=== PATIENT | male | born 2000 | race Caucasian/White ===

== ENCOUNTER 2024-07-05 15:56 | Emergency (ER) | payer MEDICAID, SELFPAY ==
[2024-07-05 16:03] VITALS: BP 180/100; PULSE 98; O2SAT 98
[2024-07-05 16:22] VITALS: BP 138/73; PULSE 99; RESP 20; TEMP 37.2; O2SAT 98; BMI 19.5
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
[2024-07-05] MEDS: Bacitracin Oint 0.9 GM PACKET 1 APPL TOPICAL (19:18)
[2024-07-05] MEDS: Diphth,Pertus(ACell),Tet Adult 0.5 ML SYRINGE IM (19:18)
[2024-07-05 19:35] VITALS: BP 138/73; PULSE 99; RESP 20; TEMP 37.2; O2SAT 98
== END 2024-07-05 19:35 | disposition home or self-care (01) ==
PROVIDERS: Emergency Provider Emergency Medicine
DX: T25.221A Burn of second degree of right foot, initial encounter (principal); X08.8XXA Exposure to other specified smoke, fire and flames, initial encounter; M79.671 Pain in right foot; Y93.9 Activity, unspecified; Y92.019 Unspecified place in single-family (private) house as the place of occurrence of the external cause; Y99.9 Unspecified external cause status; Z23 Encounter for immunization
CPT/HCPCS: 16000; 90471; 90715; 99284